=== PATIENT | female | born 1955 | race Caucasian/White ===

== ENCOUNTER 2023-06-25 06:36 | Inpatient (IN) | payer MEDICARE, OTHER ==
[2023-06-25] MEDS ORDERED: OXYMETAZOLINE HCL NASAL SPRAY 30 ML BOTTLE NS ONE (07:20)
[2023-06-25] MEDS ORDERED: VANCOMYCIN 1 GM VIAL ONE (07:20)
[2023-06-25] MEDS ORDERED: dexaMETHasone SOD PHOSPHATE 2 ML ONE (07:20)
[2023-06-25] MEDS ORDERED: LIDOCAINE 2%-EPI 1:100,000 30 ML VIAL ONE (07:21)
[2023-06-25] MEDS ORDERED: LABETALOL HCL IV 100MG VIAL ONE (07:52)
[2023-06-25] MEDS ORDERED: HYDROMORPHONE 1 MG/1 ML DISP.SYRIN IV PRN (11:00)
[2023-06-25] MEDS ORDERED: ONDANSETRON HCL/PF 4 MG/2 ML VIAL IV PRN (11:00)
[2023-06-25] MEDS ORDERED: HYDR25TA4 PO (11:35)
[2023-06-25] MEDS ORDERED: CITA20TA19 PO (11:35)
[2023-06-25] MEDS ORDERED: CHOL500062 PO (11:35)
[2023-06-25] MEDS ORDERED: BISA-79 PO (11:35)
[2023-06-25] MEDS ORDERED: ASPI-1420 PO (11:35)
[2023-06-25] MEDS ORDERED: ATEN25TA PO (11:35)
[2023-06-25] MEDS ORDERED: ATOR10TA PO (11:35)
[2023-06-25] MEDS ORDERED: OMEP20TA5 PO (11:35)
[2023-06-25] MEDS ORDERED: LORA-259 PO (11:35)
[2023-06-25] MEDS: IV NS 0.9% 1,000 ML IV PRN (11:37)
[2023-06-25] MEDS: ACETAMINOPHEN 325 MG TABLET PO PRN (11:55)
[2023-06-25 16:00] VITALS: BP 125/67; TEMP 97.5; O2SAT 95
[2023-06-25] MEDS ORDERED: LORAZEPAM 1 MG TABLET PO PRN (16:30)
[2023-06-25] MEDS ORDERED: PANTOPRAZOLE 40 MG TABLET.DR PO PRN (16:30)
[2023-06-25] MEDS ORDERED: MAGNESIUM HYDROXIDE 30 ML UDC PO PRN (17:00)
[2023-06-25] MEDS ORDERED: MAG HYDROX/AL HYDROX/SIMETH 30 ML UDC PO PRN (17:00)
[2023-06-25] MEDS ORDERED: ACETAMINOPHEN 325 MG TABLET PO PRN (17:00)
[2023-06-25] MEDS: ATENOLOL 25 MG TABLET PO SCH (17:09)
[2023-06-25] MEDS: VANCOMYCIN 1 GM in IV D5W 250ml IV SCH (18:32)
[2023-06-25 20:00] VITALS: BP 118/73; TEMP 98.4; O2SAT 96
[2023-06-25 21:18] VITALS: BP 118/73; TEMP 98.4; O2SAT 96
[2023-06-26] MEDS: ONDANSETRON HCL/PF 4 MG/2 ML VIAL IVP PRN (06:56)
[2023-06-26 07:38] LABS: BASOPHILS % (AUTO) 0.1 % (0.0-2.0); HEMATOCRIT 34 % (33-45); HEMOGLOBIN 10.8 g/dL (11.5-14.8); LYMPHOCYTES # (AUTO) 2.7 K/uL (0.8-4.8); LYMPHOCYTES % (AUTO) 20.3 % (20.0-44.0); MEAN CORPUSCULAR HEMOGLOBIN 27 PG (26.0-33.0); MEAN CORPUSCULAR HGB CONC 32 g/dl (31.0-36.0); MEAN CORPUSCULAR VOLUME 85 fL (82-100); MONOCYTES # (AUTO) 0.5 K/uL (0.1-1.30); MONOCYTES % (AUTO) 4.1 % (2.0-12.0); NEUTROPHILS % (AUTO) 75.5 % (43.0-81.0); PLATELET COUNT (AUTO) 248 K/uL (150-450); RED BLOOD CELL COUNT(AUTO) 3.96 MIL/uL (4.0-5.2); RED CELL DISTRIBUTION WIDTH 14.4 % (11.5-15.0); WHITE BLOOD COUNT (AUTO) 13.2 K/uL (4.3-11.0)
[2023-06-26 08:53] LABS: CALCIUM, SERUM 8.9 mg/dL (8.5-10.1); CHOLESTEROL 184 mg/dL (<200); CREATININE 0.9 mg/dL (0.6-1.3); HDL CHOLESTEROL 58 mg/dL (40-60); LDL 107 mg/dL (0-99); MAGNESIUM 2.1 mg/dL (1.8-2.4); PHOSPHORUS 3.7 mg/dL (2.5-4.9); POTASSIUM 3.7 mmol/L (3.5-5.1); TRIGLYCERIDES 73 mg/dL (30-150)
[2023-06-26 09:00] VITALS: BP 115/57
[2023-06-26] MEDS: HYDROCHLOROTHIAZIDE 25 MG TABLET PO SCH (09:00)
[2023-06-26] MEDS: CITALOPRAM HYDROBROMIDE 20 MG TABLET PO SCH (09:44)
[2023-06-26] MEDS: ASPIRIN EC 81 MG TABLET.DR PO SCH (09:44)
[2023-06-26] MEDS: ATORVASTATIN 10 MG TABLET PO SCH (09:44)
[2023-06-26] MEDS: BISACODYL (5 MG) 5 MG TABLET.DR PO SCH (09:44)
[2023-06-26] MEDS: CHOLECALCIFEROL (VITAMIN D 3) 400 UNIT TABLET PO SCH (09:44)
== END 2023-06-26 09:45 | disposition home or self-care (01) | DRG 142 ==
LOC: DS 06:36 → MED 10:23
PROVIDERS: ADMIT Nurse Practitioner Acute Care; ATTEND Nurse Practitioner Acute Care
PROC: 0NUR07Z Supplement Maxilla with Autologous Tissue Substitute, Open Approach (ICD-10-PCS; principal; 2023-06-25)
PROC: 0NBR0ZX Excision of Maxilla, Open Approach, Diagnostic (ICD-10-PCS; 2023-06-25)
PROC: 0NSR04Z Reposition Maxilla with Internal Fixation Device, Open Approach (ICD-10-PCS; 2023-06-25)
DX: S02.40DA Maxillary fracture, left side, initial encounter for closed fracture (principal); S02.40CA Maxillary fracture, right side, initial encounter for closed fracture; X58.XXXA Exposure to other specified factors, initial encounter; Y93.9 Activity, unspecified; Y92.009 Unspecified place in unspecified non-institutional (private) residence as the place of occurrence of the external cause; D16.4 Benign neoplasm of bones of skull and face; M27.2 Inflammatory conditions of jaws; J32.0 Chronic maxillary sinusitis; I10 Essential (primary) hypertension; M27.49 Other cysts of jaw
CPT/HCPCS: 36415; 80048-TC; 80061-TC; 83735-TC; 84100-TC; 85025-TC; 88305-TC; 88311-TC; A4223; C1713; G0378; J0461; J0690; J1100; J2310; J2405; J2704; J3370; J3490; J7030; J7060

== ENCOUNTER 2023-12-11 09:06 | Inpatient (IN) | payer MEDICARE, OTHER ==
[~2023-12-11] VITALS: Ht 154.9 cm; Wt 81.6 kg
[~2023-12-11 09:06] MED LIST: ASPI-1420 PO; ATEN25TA PO; ATOR10TA PO; BISA-79 PO; CHOL500062 PO; CITA20TA19 PO; HYDR25TA4 PO; LORA-259 PO; OMEP20TA5 PO
[2023-12-11] MEDS ORDERED: VANCOMYCIN 1 GM VIAL ONE (12:45)
[2023-12-11] MEDS ORDERED: dexaMETHasone SOD PHOSPHATE 2 ML ONE (12:45)
[2023-12-11] MEDS ORDERED: LIDOCAINE 2%-EPI 1:100,000 30 ML VIAL ONE (12:45)
[2023-12-11] MEDS ORDERED: MIDAZOLAM HCL 2 MG/2ML VIAL ONE (12:46)
[2023-12-11] MEDS ORDERED: FENTANYL PF 100MCG/2ML AMPUL ONE ×2 (12:46→13:25)
[2023-12-11] MEDS ORDERED: LABETALOL HCL IV 100MG VIAL ONE (13:25)
[2023-12-11] MEDS ORDERED: ANESTHESIA TRAY IN PYXIS 1 EA TRAY MC ONE (14:42)
[2023-12-11] MEDS ORDERED: ACETAMINOPHEN 325 MG TABLET PO PRN (15:00)
[2023-12-11] MEDS: HYDROMORPHONE 1 MG/1 ML DISP.SYRIN IV PRN (15:40)
[2023-12-11] MEDS: ONDANSETRON HCL/PF 4 MG/2 ML VIAL IV PRN (15:41)
[2023-12-11 16:00] VITALS: BP 135/86; TEMP 98; O2SAT 95
[2023-12-11 17:41] VITALS: BP 135/86; TEMP 98; O2SAT 95
[2023-12-11 20:00] VITALS: BP 109/71; TEMP 97.8; O2SAT 95
[2023-12-12] MEDS: IV NS 0.9% 1,000 ML IV PRN (04:04)
[2023-12-12 08:00] VITALS: BP 148/84; TEMP 97.7; O2SAT 97
== END 2023-12-12 11:54 | disposition home or self-care (01) | DRG 497 ==
LOC: DS 09:06 → MED 15:20
PROVIDERS: ADMIT Internal Medicine; ATTEND Internal Medicine
PROC: 0WB30ZZ Excision of Oral Cavity and Throat, Open Approach (ICD-10-PCS; principal; 2023-12-11)
PROC: 0NBR0ZZ Excision of Maxilla, Open Approach (ICD-10-PCS; principal; 2023-12-11)
PROC: 0NPW04Z Removal of Internal Fixation Device from Facial Bone, Open Approach (ICD-10-PCS; principal; 2023-12-11)
PROC: 0N5R0ZZ Destruction of Maxilla, Open Approach (ICD-10-PCS; principal; 2023-12-11)
DX: T84.69XA Infection and inflammatory reaction due to internal fixation device of other site, initial encounter (principal); K13.70 Unspecified lesions of oral mucosa; M89.38 Hypertrophy of bone, other site; M27.2 Inflammatory conditions of jaws; E78.5 Hyperlipidemia, unspecified; I10 Essential (primary) hypertension; Y79.3 Surgical instruments, materials and orthopedic devices (including sutures) associated with adverse incidents; Y92.89 Other specified places as the place of occurrence of the external cause
CPT/HCPCS: 88305-TC; 88311-TC; 94799-TC; A4223; A4338; G0378; J1100; J1171; J2250; J2405; J2704; J3010; J3370; J3490; J7030